=== PATIENT | male | born 1990 | race Caucasian/White ===

== ENCOUNTER 2019-11-10 22:50 | Emergency (ER) | payer OTHER ==
[~2019-11-10] VITALS: Ht 177.8 cm; Wt 82.2 kg
[2019-11-10] MEDS ORDERED: ASPIRIN 81 MG TABLET CHEW ONE (23:21)
--- NOTE | 2019-11-10 23:26 | NUR ---
PT HERE FOR C/O DIZZINESS AND CHEST PRESSURE AFTER DOING COCAINE. 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
[2019-11-10 23:27] LABS: BASOPHILS # (AUTO) 0.02 x10^3/uL (0-0.1); BASOPHILS % (AUTO) 0 % (0-1); EOSINOPHILS # (AUTO) 0.08 x10^3/uL (0-0.4); EOSINOPHILS % (AUTO) 1 % (1-7); LYMPHOCYTES # (AUTO) 2.02 x10^3/uL (1-3.4); LYMPHOCYTES % (AUTO) 29 % (22-44); MD NO; MEAN CORPUSCULAR HEMOGLOBIN 31.8 pg (27.5-34.5); MEAN CORPUSCULAR HGB CONC 33.6 g/dL (33.2-36.2); MEAN CORPUSCULAR VOLUME 94.5 fL (81-97); MEAN PLATELET VOLUME 7.4 fL (7.4-10.4); MONOCYTES # (AUTO) 0.65 x10^3/uL (0.2-0.8); MONOCYTES % (AUTO) 9 % (2-9); NEUTROPHILS # (AUTO) 4.23 x10^3/uL (1.8-6.8); NEUTROPHILS % (AUTO) 60 % (42-75); PLATELET COUNT 308 x10^3/uL (130-400); RED BLOOD COUNT 4.88 x10^6/uL (4.38-5.82); RED CELL DISTRIBUTION WIDTH 12.7 % (9.4-14.8)
[2019-11-10] MEDS ORDERED: SODIUM CHLORIDE FLUSH 10ML SYR IVF ONE (23:30)
[2019-11-10] MEDS ORDERED: ASPIRIN 81 MG TABLET CHEW PO ONE (23:30)
[2019-11-10 23:36] LABS: ALANINE AMINOTRANSFERASE 47 U/L (12-78); ANION GAP 8 mmol/L (5-15); CALCIUM 8.8 mg/dL (8.5-10.1); CHLORIDE 101 mmol/L (98-107); CREATININE 0.89 mg/dL (0.7-1.3)
[2019-11-10 23:40] LABS: ALKALINE PHOSPHATASE 85 U/L (45-117); BILIRUBIN,TOTAL 0.4 mg/dL (0.2-1.0); TOTAL PROTEIN 8.4 g/dL (6.4-8.2); TROPONIN I < 0.015 ng/mL (0.000-0.045)
--- NOTE | 2019-11-10 23:50 | NUR ---
LATE NOTE: THIS TECH ROOMED PT
[2019-11-10 23:53] VITALS: BP 133/84
== END 2019-11-10 23:57 | disposition home or self-care (01) ==
LOC: ED 23:29
DX: R42 Dizziness and giddiness (principal); R06.00 Dyspnea, unspecified; F14.10 Cocaine abuse, uncomplicated; F17.210 Nicotine dependence, cigarettes, uncomplicated
CPT/HCPCS: 36415; 71045; 80053; 84484; 85025; 93005; 99285

== ENCOUNTER → 2020-08-05 | Outpatient (CLI) | payer BC | END | disposition home or self-care (01) | LOC: STAR 09:29 | PROVIDERS: ATTEND Orthopaedic Surgery | DX: Z20.828 Contact with and (suspected) exposure to other viral communicable diseases (principal); M25.552 Pain in left hip; M87.052 Idiopathic aseptic necrosis of left femur; M87.059 Idiopathic aseptic necrosis of unspecified femur | CPT/HCPCS: 87635 ==

== ENCOUNTER 2020-08-11 07:31 | Day surgery (SDC) | payer BC, OTHER ==
[~2020-08-11] VITALS: Ht 177.8 cm; Wt 82.0 kg
[2020-08-11] MEDS ORDERED: CHLORHEXIDINE 15 ML UDC MM STA (07:44)
[2020-08-11 08:00] VITALS: BP 144/87
[2020-08-11] MEDS ORDERED: LACTATED RINGERS 1,000 ML IV SCH (08:00)
[2020-08-11] MEDS ORDERED: KETOROLAC 30 MG/1 ML IVPush PRN (08:30)
[2020-08-11] MEDS ORDERED: OXYcodone 5 MG/5 ML ORAL.SOL UDC PO PRN (08:30)
[2020-08-11] MEDS ORDERED: PROMETHAZINE 25 MG/ML, 1ML IVPush PRN (08:30)
[2020-08-11] MEDS ORDERED: MEPERIDINE/PF 25MG/0.5ML IVPush PRN (08:30)
[2020-08-11] MEDS ORDERED: HYDROmorphone 1 MG/ML, 1ML INJ IVPush PRN (08:30)
[2020-08-11] MEDS ORDERED: HYDROcodone/APAP 7.5-325MG/15ML UDC PO PRN (08:30)
[2020-08-11 08:42] LABS: AMPHETAMINE SCREEN, URINE Negative (Negative); BARBITURATE SCREEN, URINE Negative (Negative); BENZODIAZEPINE SCREEN, URINE Negative (Negative); CANNABINOID SCREEN, URINE Positive (Negative); COCAINE SCREEN, URINE Negative (Negative); METHADONE SCREEN, URINE Negative (Negative); OPIATE SCREEN, URINE Negative (Negative)
[2020-08-11] MEDS ORDERED: ROCURONIUM 10 MG/ML,10ML ONE (09:15)
[2020-08-11] MEDS ORDERED: SUCCINYLCHOLINE 20 MG/ML, 10ML ONE (09:15)
[2020-08-11] MEDS ORDERED: CEFAZOLIN 1,000 MG ONE (09:15)
[2020-08-11] MEDS ORDERED: PROPOFOL 10 MG/ML, 20ML ONE (09:15)
[2020-08-11] MEDS ORDERED: ONDANSETRON 2MG/ML, 2ML ONE (09:15)
[2020-08-11] MEDS ORDERED: DEXAMETHASONE 4 MG/ML, 1ML ONE (09:15)
[2020-08-11] MEDS ORDERED: ROPIvacaine/PF 0.5%, 30 ML INFIL ONE (09:44)
[2020-08-11] MEDS ORDERED: KETOROLAC 30 MG/1 ML ONE (10:09)
[2020-08-11] MEDS ORDERED: FENTANYL PF 100 MCG/2ML ONE (10:15)
[2020-08-11] MEDS: FENTANYL PF 100 MCG/2ML IV PRN ×2 (10:15→10:30)
[2020-08-11] MEDS ORDERED: OXYcodone 5 MG/5 ML ORAL.SOL UDC ONE ×2 (10:15→10:17)
[2020-08-11] MEDS ORDERED: MEPERIDINE/PF 25MG/ML,1ML ONE (10:37)
== END 2020-08-11 11:45 | disposition home or self-care (01) ==
LOC: OUT 07:31
PROVIDERS: ATTEND Orthopaedic Surgery
DX: M87.852 Other osteonecrosis, left femur (principal); M94.252 Chondromalacia, left hip; M25.852 Other specified joint disorders, left hip; Z79.899 Other long term (current) drug therapy
CPT/HCPCS: 27235; 73501; 80307; J0330; J0690; J1100; J1885; J2175; J2405; J2704; J2795; J3010; J7120; 76000